=== PATIENT | male | born 1945 | race Caucasian/White ===

== ENCOUNTER 2018-06-02 11:54 | Emergency (ER) | payer MEDICARE, BC ==
--- NOTE | 2018-06-02 12:11 | ER Document Report ---
ED Medical Screen (RME) - General Chief Complaint: Abnormal Lab Results Stated Complaint: ABNORMAL LABS Time Seen by Provider: 06/02/18 12:08 Primary Care Provider: MARK CLARK MD [Primary Care Provider] - Follow up as needed Notes: 72 years old female with a history of collagenous colitis, was sent over here by the certified drug counselor because of abnormal renal function. The blood was drawn about a week ago. At that time patient had diarrhea which has subsided now. He is feeling comfortable TRAVEL OUTSIDE OF THE [place] IN LAST 30 DAYS: No - Related Data Allergies/Adverse Reactions: amoxicillin trihydrate [From Augmentin] Allergy (Severe, Verified 06/02/18 11:56) swelling, itching Potassium Clavulanate * [From Augmentin] Allergy (Severe, Verified 06/02/18 11:56) swelling, itching clarithromycin [Clarithromycin] Allergy (Intermediate, Verified 06/02/18 11:56) DECREASED BP metronidazole [Metronidazole] Allergy (Intermediate, Verified 06/02/18 11:56) DECREASED BP Past Medical History - Past Medical History Cardiac Medical History: Reports: Hx Hypertension Denies: Hx Coronary Artery Disease, Hx Heart Attack Pulmonary Medical History: Denies: Hx Asthma, Hx Bronchitis, Hx COPD, Hx Pneumonia Neurological Medical History: Denies: Hx Cerebrovascular Accident, Hx Seizures Musculoskeltal Medical History: Reports Hx Arthritis - Immunizations Hx Diphtheria, Pertussis, Tetanus Vaccination: No Physical Exam - Vital signs Vitals: Temp Pulse Resp BP Pulse Ox 97.7 F 56 L 16 149/59 H 100 06/02/18 12:00 06/02/18 12:00 06/02/18 12:00 06/02/18 12:00 06/02/18 12:00 Course - Vital Signs Vital signs: Temp Pulse Resp BP Pulse Ox 97.7 F 56 L 16 149/59 H 100 06/02/18 12:00 06/02/18 12:00 06/02/18 12:00 06/02/18 12:00 06/02/18 12:00 Doctor's Discharge - Discharge Referrals: MARK CLARK MD [Primary Care Provider] - Follow up as needed
[2018-06-02 12:54] LABS: ABSOLUTE EOSINOPHILS # (AUTO) 0.2 10^3/uL (0.0-0.6); ABSOLUTE LYMPHOCYTES (AUTO) 3.6 10^3/uL (0.5-4.7); ABSOLUTE MONOCYTES (AUTO) 0.9 10^3/uL (0.1-1.4); ABSOLUTE NEUT (AUTO) 9.5 10^3/uL (1.7-8.2); BASOPHILS % (AUTO) 0.3 % (0-2); EOSINOPHILS % (AUTO) 1.7 % (0-6); HEMOGLOBIN 12.6 g/dL (13.5-17.0); LYMPHOCYTES % (AUTO) 25.4 % (13-45); MEAN CORPUSCULAR HEMOGLOBIN 29.2 pg (27.0-33.4); MEAN CORPUSCULAR HGB CONC 34.9 g/dL (32.0-36.0); MEAN CORPUSCULAR VOLUME 84 fl (80-97); MONOCYTES % (AUTO) 6.6 % (3-13); PLATELET COUNT 307 10^3/uL (150-450); RED CELL DISTRIBUTION WIDTH 14.4 % (11.5-14.0); TOTAL CELLS COUNTED % (AUTO) 100 %; WHITE BLOOD COUNT 14.3 10^3/uL (4.0-10.5)
[2018-06-02 13:13] LABS: ALANINE AMINOTRANSFERASE 17 U/L (21-72); ALBUMIN 4.3 g/dL (3.5-5.0); ALKALINE PHOSPHATASE 131 U/L (38-126); ANION GAP 12 (5-19); ASPARTATE AMINO TRANSFERASE 15 U/L (17-59); BILIRUBIN,DIRECT 0.3 mg/dL (0.0-0.4); BILIRUBIN,TOTAL 0.5 mg/dL (0.2-1.3); BLOOD UREA NITROGEN 27 mg/dL (7-20); CARBON DIOXIDE 25 mmol/L (22-30); CHLORIDE 112 mmol/L (98-107); GLUCOSE 95 mg/dL (75-110); POTASSIUM 3.4 mmol/L (3.6-5.0)
[2018-06-02] MEDS ORDERED: NORMAL SALINE 1000 ML 1,000 ML IV ONE (13:33)
[2018-06-02] MEDS ORDERED: POTASSIUM CHLORIDE 10 MEQ CAPSULE.ER PO ONE (13:34)
--- NOTE | 2018-06-02 14:58 | ER Document Report ---
ED General - General Chief Complaint: Abnormal Lab Results Stated Complaint: ABNORMAL LABS Time Seen by Provider: 06/02/18 12:08 Primary Care Provider: CATHRYN MOSLEY MD [ACTIVE STAFF] - Follow up as needed (Follow-up with Dr. Mosley as planned) MARK CLARK MD [NO LOCAL MD] - Follow up as needed Mode of Arrival: Ambulatory Information source: Patient Notes: This is a 72-year-old man with a history of colitis, anemia, [place]'s esophagus who presents to the emergency room after a call from the physician's office. Patient was told to come in because of abnormal labs last week. Patient does have a history of colitis and had significant diarrhea a week ago during which the lab tests were sent. He states he got a call last night saying that his kidney function tests were abnormal and he should come to the ER. Patient states his symptoms have actually improved over the last week and he is eating and drinking without any difficulties. He also denies any diarrhea. I did discuss the case with Dr. Mosley who states that his creatinine on the fifth of this month was 6. TRAVEL OUTSIDE OF THE [place] IN LAST 30 DAYS: No - HPI Onset: Last week Onset/Duration: Gradual Quality of pain: No pain Severity: None Pain Level: Denies Associated symptoms: denies: Chest pain, Fever, Shortness of breath Exacerbated by: Denies Relieved by: Denies Similar symptoms previously: Yes Recently seen / treated by doctor: Yes - Related Data Allergies/Adverse Reactions: amoxicillin trihydrate [From Augmentin] Allergy (Severe, Verified 06/02/18 11:56) swelling, itching Potassium Clavulanate * [From Augmentin] Allergy (Severe, Verified 06/02/18 11:56) swelling, itching clarithromycin [Clarithromycin] Allergy (Intermediate, Verified 06/02/18 11:56) DECREASED BP metronidazole [Metronidazole] Allergy (Intermediate, Verified 06/02/18 11:56) DECREASED BP Past Medical History - General Information source: Patient - Social History Smoking Status: Current Every Day Smoker Cigarette use (# per day): Yes - 1 pack/day Chew tobacco use (# tins/day): No Frequency of alcohol use: None Drug Abuse: None Lives with: Spouse/Significant other Family History: None Patient has suicidal ideation: No Patient has homicidal ideation: No - Past Medical History Cardiac Medical History: Reports: Hx Hypertension Denies: Hx Coronary Artery Disease, Hx Heart Attack Pulmonary Medical History: Denies: Hx Asthma, Hx Bronchitis, Hx COPD, Hx Pneumonia Neurological Medical History: Denies: Hx Cerebrovascular Accident, Hx Seizures Renal/ Medical History: Denies: Hx Peritoneal Dialysis Musculoskeletal Medical History: Reports Hx Arthritis Surgical Hx: Negative - Immunizations Hx Diphtheria, Pertussis, Tetanus Vaccination: No Review of Systems - Review of Systems Constitutional: See HPI EENT: No symptoms reported Cardiovascular: denies: Chest pain, Palpitations, Heart racing Respiratory: denies: Cough, Short of breath, Wheezing Gastrointestinal: Other - Patient did have history of "severe diarrhea" 2 weeks ago. Currently he denies any diarrhea or abdominal pain.. denies: Abdominal pain, Nausea, Vomiting Genitourinary: denies: Dysuria, Flank pain, Hematuria Male Genitourinary: No symptoms reported Musculoskeletal: No symptoms reported Skin: No symptoms reported Hematologic/Lymphatic: No symptoms reported Neurological/Psychological: No symptoms reported Physical Exam - Vital signs Vitals: Temp Pulse Resp BP Pulse Ox 97.7 F 56 L 16 149/59 H 100 06/02/18 12:00 06/02/18 12:00 06/02/18 12:00 06/02/18 12:00 06/02/18 12:00 Notes: Physical exam: GENERAL: Patient is alert and oriented x3, no acute distress HEAD: Atraumatic, normocephalic. EYES: Pupils equal round and reactive to light, extraocular movements intact, sclera anicteric, conjunctiva are normal. ENT: TMs normal, nares patent, oropharynx clear without exudates. Dry mucous membranes. NECK: Normal range of motion, supple without obvious mass or JVD. LUNGS: Breath sounds clear to auscultation bilaterally and equal. No wheezes rales or rhonchi. HEART: Regular rate and rhythm without murmurs, rubs or gallops. ABDOMEN: Soft, normoactive bowel sounds. No tenderness to palpation. No guarding, no rebound. No masses appreciated. EXTREMITIES: Normal range of motion, no pitting or edema. No clubbing or cyanosis. NEUROLOGICAL: Cranial nerves II through XII grossly intact. Normal speech, moving all extremities. PSYCH: Normal mood, normal affect. SKIN: Warm, Dry, normal turgor, no rashes or lesions noted. Course - Re-evaluation Re-evalutation: 06/02/18 15:02 Note: Patient may have mild dehydration on exam, but his symptoms of colitis have resolved for the past week. He is tolerating p.o. without difficulty and is drinking water in the ER. His creatinine was 6 a week ago showing the severity of his colitis. Given that he is essentially asymptomatic now, tolerating p.o. and creatinine has normalized, we will DC home. I discussed the case with Dr. Mosley who will follow up with the patient in the office. Note: I did discuss with him his blood pressure being mildly elevated. He is on blood pressure medicine and will follow up with his primary care doctor. 06/02/18 18:47 - Vital Signs Vital signs: Temp Pulse Resp BP Pulse Ox 98.1 F 56 L 18 157/60 H 98 06/02/18 15:17 06/02/18 15:17 06/02/18 15:17 06/02/18 15:17 06/02/18 15:17 - Laboratory Result Diagrams: 06/02/18 12:15 06/02/18 12:15 Laboratory results interpreted by me: 06/02/18 06/02/18 12:15 12:15 WBC 14.3 H RBC 4.30 L Hgb 12.6 L Hct 36.0 L RDW 14.4 H Absolute Neutrophils 9.5 H Sodium 149.0 H Potassium 3.4 L Chloride 112 H BUN 27 H Est GFR (Non-Af Amer) 57 L AST 15 L ALT 17 L Alkaline Phosphatase 131 H Discharge - Discharge Clinical Impression: Mild dehydration Condition: Stable Disposition: HOME, SELF-CARE Additional Instructions: As we discussed, your kidney function tests have normalized. I would continue to drink plenty of fluids and continue your medicines. I have spoken to Dr. Mosley and your kidney function test had markedly worsened with your colitis symptoms. So in the future, I would rather you come into the ER for evaluation if your colitis seems bad so that we can check your electrolytes and kidney function. Follow-up with Dr. Mosley as planned. He is aware of today's test results. Return to the emergency room for any abdominal pain, worsening diarrhea, weakness or any concerns or getting worse. Referrals: MARK CLARK MD [NO LOCAL MD] - Follow up as needed CATHRYN MOSLEY MD [ACTIVE STAFF] - Follow up as needed (Follow-up with Dr. Mosley as planned)
[2018-06-02 15:18] VITALS: BP 157/60
== END 2018-06-02 15:20 | disposition home or self-care (01) ==
LOC: ER 11:54
DX: E86.0 Dehydration (principal); I10 Essential (primary) hypertension; Z79.899 Other long term (current) drug therapy; F17.210 Nicotine dependence, cigarettes, uncomplicated; Z88.0 Allergy status to penicillin; Z88.1 Allergy status to other antibiotic agents
CPT/HCPCS: 99284; 36415; 85025; 80053; A9270

== ENCOUNTER 2018-08-06 06:32 | Day surgery (SDC) | payer MEDICARE, BC ==
[~2018-08-06 06:32] MED LIST: KETOROLAC TROMETHAMINE 0.45% 4 DROP/0.4 ML DROPERETTE OD PRN
[2018-08-06] MEDS: CYCLOPENTOLATE 0.2%/PHENYLEPHRINE 1% OPH SOLN 2 ML OD PRN ×3 (06:54→07:15)
[2018-08-06] MEDS: TROPICAMIDE 1% OPH SOLN 3 ML OD PRN ×3 (06:54→07:15)
[2018-08-06] MEDS: BESIFLOXACIN HCL 0.6% OPH SUSP 5 ML BOTTLE OD PRN ×4 (06:54→07:50)
[2018-08-06] MEDS: TETRACAINE HCL 0.5% OPH SOLN 4 ML OD PRN ×4 (06:55→07:32)
[2018-08-06] MEDS ORDERED: LIDOCAINE 1% INJ-PF (10 MG/ML) 30 ML SDV ONE (07:11)
[2018-08-06] MEDS ORDERED: DEXTROSE 50%-WATER 25 GM/50 ML DISP.SYRIN IV ONE (07:14)
[2018-08-06] MEDS ORDERED: MIDAZOLAM 2 MG/2 ML INJ ONE (07:22)
[2018-08-06] MEDS: CHONDR SU A NA/HYALUR INTRAOC KIT (SURGICARE) ONE ×2 (07:41)
[2018-08-06] MEDS: LIDOCAINE 1%/PHENYLEPHRINE 1.5% 1 ML VIAL ONE ×2 (07:41)
[2018-08-06] MEDS: EPINEPHRINE INJ/PF 1 MG/1 ML AMPULE ONE ×2 (07:41)
[2018-08-06] MEDS: DORZOLAMIDE HCL 2%/TIMOLOL MALEAT 0.5% OPH SOLN 10 ML OD PRN ×2 (07:50)
--- NOTE | 2018-08-07 09:44 | [facility] OPERATIVE REPORT E ---
[facility] Operative Report NAME: OMAYRA ANGEL AGE: 72Y DATE OF SURGERY: ROOM: PREOPERATIVE DIAGNOSIS: CATARACT, RIGHT EYE. POSTOPERATIVE DIAGNOSIS: CATARACT, RIGHT EYE. OPERATION: Cataract extraction with insertion of an IOL of the right eye. SURGEON: MCKINLEY OSUNA M.D. ANESTHESIA: Topical. PROCEDURE: After obtaining appropriate consent, the patient's right eye was prepped and draped in sterile fashion as well as the surgeon in a sterile manner and cataract surgery was started. First a paracentesis blade was used to make a side-port incision. Viscoelastic was used to inflate the anterior chamber. Next a 2.4 mm incision was made with a 2.4 mm blade, clear corneal temporally. A continuous capsulorrhexis was made using a cystotome and Utrata forceps. Following this hydrodissection was carried out to make the lens fully loose and mobile and it was rotated 90 degrees. Following this, a qsfoeb-lkz-kesmgga technique was used to phacoemulsify the lens with a CDE of 4.94. The remaining cortex was removed with irrigation/aspiration. Provisc was instilled into the capsular bag to inflate the bag. A SN60WF, 20.0 diopter lens was placed. The remaining viscoelastic material was removed with irrigation/aspiration. Following this, the incision was found to be watertight. Besivance was instilled into the eye and a protective shield was placed over the eye. The patient returned to the postoperative recovery in stable condition. DICTATING PHYSICIAN: MCKINLEY OSUNA M.D. [id number] PHY#: [id number] ID: [id number] JOB#: [id number] ACCT: [id number] cc:MCKINLEY OSUNA M.D. >
--- NOTE | 2018-08-07 10:40 | [facility] DISCHARGE SUMMARY E ---
[facility] Discharge Summary NAME: OMAYRA ANGEL AGE: 72Y ADMITTED: 08/06/2018 DISCHARGED: HOSPITAL COURSE: This is a 72-year-old patient who underwent cataract extraction of the right eye. DIAGNOSIS: CATARACT, RIGHT EYE. He underwent surgery because he was having difficulty driving at night secondary to glare. DISCHARGE INSTRUCTIONS: He should be on a regular diet. No bending at the waist, no heavy lifting. DICTATING PHYSICIAN: MCKINLEY OSUNA M.D. [id number] PHY#: [id number] ID: [id number] JOB#: [id number] ACCT: [id number] cc:MCKINLEY OSUNA M.D. >
== END 2018-08-06 08:35 | disposition home or self-care (01) ==
LOC: SC 06:32
PROVIDERS: ATTEND Internal Medicine
DX: H25.813 Combined forms of age-related cataract, bilateral (principal); H35.3132 Nonexudative age-related macular degeneration, bilateral, intermediate dry stage; E11.9 Type 2 diabetes mellitus without complications; I10 Essential (primary) hypertension; E78.00 Pure hypercholesterolemia, unspecified; K21.9 Gastro-esophageal reflux disease without esophagitis; D64.9 Anemia, unspecified; Z87.891 Personal history of nicotine dependence; Z79.899 Other long term (current) drug therapy; Z79.84 Long term (current) use of oral hypoglycemic drugs
CPT/HCPCS: 66984; 82962; V2632; J2250; J3490 ×3; A9270; J0171; J2370; 142

== ENCOUNTER 2018-09-03 07:35 | Day surgery (SDC) | payer MEDICARE, BC ==
[~2018-09-03 07:35] MED LIST changes: +CHONDR SU A NA/HYALUR INTRAOC KIT (SURGICARE) ONE; +DORZOLAMIDE HCL 2%/TIMOLOL MALEAT 0.5% OPH SOLN 10 ML OS PRN; +EPINEPHRINE INJ/PF 1 MG/1 ML AMPULE ONE; -KETOROLAC TROMETHAMINE 0.45% 4 DROP/0.4 ML DROPERETTE OD PRN; +KETOROLAC TROMETHAMINE 0.45% 4 DROP/0.4 ML DROPERETTE OS PRN; +LIDOCAINE 1%/PHENYLEPHRINE 1.5% 1 ML VIAL ONE
[2018-09-03] MEDS: CYCLOPENTOLATE 0.2%/PHENYLEPHRINE 1% OPH SOLN 2 ML OS PRN ×3 (08:26→08:58)
[2018-09-03] MEDS: TROPICAMIDE 1% OPH SOLN 3 ML OS PRN ×3 (08:26→08:58)
[2018-09-03] MEDS: BESIFLOXACIN HCL 0.6% OPH SUSP 5 ML BOTTLE OS PRN ×2 (08:27→08:45)
[2018-09-03] MEDS: TETRACAINE HCL 0.5% OPH SOLN 4 ML OS PRN ×2 (08:28→09:06)
[2018-09-03] MEDS ORDERED: MIDAZOLAM 2 MG/2 ML INJ ONE (08:51)
--- NOTE | 2018-09-04 09:59 | [facility] OPERATIVE REPORT E ---
[facility] Operative Report NAME: OMAYRA ANGEL AGE: 72Y DATE OF SURGERY: 09/03/2018 ROOM: PREOPERATIVE DIAGNOSIS: CATARACT, LEFT EYE. POSTOPERATIVE DIAGNOSIS: CATARACT, LEFT EYE. OPERATION: Cataract extraction with insertion of an IOL of the left eye. SURGEON: MCKINLEY OSUNA M.D. ANESTHESIA: Topical. PROCEDURE: After obtaining appropriate consent, the patient's left eye was prepped and draped in sterile fashion as well as the surgeon in a sterile manner and cataract surgery was started. First a paracentesis blade was used to make a side-port incision. Viscoelastic was used to inflate the anterior chamber. Next a 2.4 mm incision was made with a 2.4 mm blade, clear corneal temporally. A continuous capsulorrhexis was made using a cystotome and Utrata forceps. Following this hydrodissection was carried out to make the lens fully loose and mobile and it was rotated 90 degrees. Following this, a ejhzjr-niu-wdvazct technique was used to phacoemulsify the lens with a CDE of 7.37. The remaining cortex was removed with irrigation/aspiration. Provisc was instilled into the capsular bag to inflate the bag. A SN60WF, 20.0 diopter lens was placed. The remaining viscoelastic material was removed with irrigation/aspiration. Following this, the incision was found to be watertight. Besivance was instilled into the eye and a protective shield was placed over the eye. The patient returned to the postoperative recovery in stable condition. DICTATING PHYSICIAN: MCKINLEY OSUNA M.D. [id number] PHY#: [id number] ID: [id number] JOB#: [id number] ACCT: [id number] cc:MCKINLEY OSUNA M.D. >
--- NOTE | 2018-09-04 10:00 | [facility] DISCHARGE SUMMARY E ---
[facility] Discharge Summary NAME: OMAYRA ANGEL AGE: 72Y ADMITTED: 09/03/2018 DISCHARGED: 09/03/2018 DIAGNOSIS: CATARACT, LEFT EYE. SUMMARY: This is a 72-year-old male who underwent cataract extraction, left eye. They underwent surgery because they were having difficulty seeing small print. DISCHARGE INSTRUCTIONS: They should be on a regular diet, no bending at their waist, and no heavy lifting. They should use their Vigamox, Ilevro, and Pred Forte at 3 p.m. and 8 p.m. and sleep with a rigid shield. I will see them for a 1-day postoperative tomorrow. DICTATING PHYSICIAN: MCKINLEY OSUNA M.D. [id number] PHY#: [id number] ID: [id number] JOB#: [id number] ACCT: [id number] cc:MCKINLEY OSUNA M.D. >
== END 2018-09-03 10:03 | disposition home or self-care (01) ==
LOC: SC 07:35
PROVIDERS: ATTEND Internal Medicine
DX: H25.812 Combined forms of age-related cataract, left eye (principal); Z96.1 Presence of intraocular lens; I10 Essential (primary) hypertension; K21.9 Gastro-esophageal reflux disease without esophagitis; E11.9 Type 2 diabetes mellitus without complications; D64.9 Anemia, unspecified; F17.210 Nicotine dependence, cigarettes, uncomplicated; Z79.899 Other long term (current) drug therapy; Z79.84 Long term (current) use of oral hypoglycemic drugs
CPT/HCPCS: 66984; 82962; V2632; J2250; J3490 ×2; A9270; J0171; J2370; 142

== ENCOUNTER → 2019-06-10 | Outpatient (CLI) | payer MEDICARE, BC ==
--- NOTE | 2019-06-10 11:14 | RADIOLOGY REPORT (SQ) ---
EXAM DESCRIPTION: U/S ABDOMEN LIMITED W/O DOP COMPLETED DATE/TIME: 06/10/2019 10:27 am REASON FOR STUDY: R94.5 ABNORMAL RESULTS OF LIVER FUNCTION STUDIES R94.5 ABNORMAL RESULTS OF LIVER FUNCTION STUDIES COMPARISON: None. TECHNIQUE: Dynamic and static grayscale images acquired of the abdomen and recorded on PACS. Additio nal selected color Doppler and spectral images recorded. LIMITATIONS: Limited visualization. Poor acoustical window FINDINGS: PANCREAS: No masses. Visualized pancreatic duct normal caliber. LIVER: Normal size Echo texture normal. No focal masses. LIVER VASCULATURE: Normal directional flow of the main portal vein and hepatic veins. GALLBLADDER: No stones. Normal wall thickness. No pericholecystic fluid. ULTRASOUND-DETECTED FELIX'S SIGN: Negative. INTRAHEPATIC DUCTS AND COMMON DUCT: CBD and intrahepatic ducts normal caliber. No filling defects. INFERIOR VENA CAVA: Normal flow. AORTA: No aneurysm. RIGHT KIDNEY: Normal size. 1.9 cm upper pole cyst. No solid or suspicious masses. No hydroneph rosis. No calcifications. PERITONEAL AND RIGHT PLEURAL SPACE: No ascites or effusions. OTHER: No other significant findings. IMPRESSION: NORMAL RIGHT UPPER QUADRANT ULTRASOUND VISUALIZED. TECHNICAL DOCUMENTATION: JOB ID: [id number] 2010 [employer]- All Rights Reserved Reading location - IP/workstation name: [email or web address]
== END ==
LOC: RAD 08:53
PROVIDERS: ATTEND Internal Medicine Gastroenterology
DX: R94.5 Abnormal results of liver function studies (principal)
CPT/HCPCS: 76705

== ENCOUNTER → 2019-11-01 | Outpatient (CLI) | payer MEDICARE, BC ==
[2019-11-01 14:29] LABS: ABSOLUTE BASOPHILS # (AUTO) 0.1 10^3/uL (0.0-0.2); ABSOLUTE EOSINOPHILS # (AUTO) 0.6 10^3/uL (0.0-0.6); ABSOLUTE LYMPHOCYTES (AUTO) 2.4 10^3/uL (0.5-4.7); ABSOLUTE MONOCYTES (AUTO) 0.5 10^3/uL (0.1-1.4); ABSOLUTE NEUT (AUTO) 3.6 10^3/uL (1.7-8.2); EOSINOPHILS % (AUTO) 8.4 % (0-6); HEMATOCRIT 30.8 % (37.9-51.0); HEMOGLOBIN 10.4 g/dL (13.5-17.0); LYMPHOCYTES % (AUTO) 33.6 % (13-45); MEAN CORPUSCULAR HEMOGLOBIN 31.3 pg (27.0-33.4); MEAN CORPUSCULAR HGB CONC 33.9 g/dL (32.0-36.0); MEAN CORPUSCULAR VOLUME 93 fl (80-97); MONOCYTES % (AUTO) 6.9 % (3-13); PLATELET COUNT 354 10^3/uL (150-450); RED BLOOD COUNT 3.34 10^6/uL (4.35-5.55); SEGMENTED NEUTROPHILS % (AUTO) 50.1 % (42-78); TOTAL CELLS COUNTED % (AUTO) 100 %; WHITE BLOOD COUNT 7.1 10^3/uL (4.0-10.5)
[2019-11-01 14:47] LABS: ALBUMIN 4.3 g/dL (3.5-5.0); ALKALINE PHOSPHATASE 130 U/L (38-126); ANION GAP 9 (5-19); ASPARTATE AMINO TRANSFERASE 17 U/L (17-59); BILIRUBIN,TOTAL 0.2 mg/dL (0.2-1.3); BLOOD UREA NITROGEN 25 mg/dL (7-20); C-REACTIVE PROTEIN 5.3 mg/L (<10.0); CALCIUM 9.4 mg/dL (8.4-10.2); CARBON DIOXIDE 18 mmol/L (22-30); CHLORIDE 106 mmol/L (98-107); GLUCOSE 148 mg/dL (75-110); POTASSIUM 5.6 mmol/L (3.6-5.0); TOTAL PROTEIN 7.3 g/dL (6.3-8.2)
== END ==
LOC: OD 13:23
PROVIDERS: ATTEND Physician Assistant
DX: D50.0 Iron deficiency anemia secondary to blood loss (chronic) (principal); R19.7 Diarrhea, unspecified
CPT/HCPCS: 36415; 80048; 80076; 82728; 85025; 86140

== ENCOUNTER 2019-11-05 13:07 | Day surgery (SDC) | payer MEDICARE, BC ==
--- NOTE | 2019-11-02 14:22 | EKG REPORT ---
SEVERITY:- NORMAL ECG - SINUS BRADYCARDIA : Confirmed by: David Terrell MD 02-Nov-2019 14:21:39
[2019-11-05] MEDS ORDERED: PROPOFOL INJ 200 MG/20 ML VIAL IV ONE (13:54)
[2019-11-05] MEDS ORDERED: LIDOCAINE 2% INJ-PF (20 MG/ML) 10 ML AMPUL ONE (13:56)
--- NOTE | 2019-11-05 15:03 | Operative Report ---
Operative Report DATE OF SURGERY: 11/05/19 Operative Report: Pre-op diagnosis: Abnormal capsule endoscopy with bleeding, recurrent anemia Post-op diagnosis: 1. Jejunal angiodysplasia Surgery: Esophagogastroduodenoscopy with enteroscopy and argon plasma coagulation Medications: As per anesthesia Tissue removed: None Procedure: After informed consent obtained from patient, the throat was sprayed with Hurricane and conscious sedation was achieved. The pediatric colonoscope was inserted into the esophagus under direct vision and advanced into the stomach. The duodenum was entered and examined to the second part. The scope was then advanced into the jejunum up to 50 to 60 cm beyond the ligament of Treitz. 4 small angiodysplasias were identified and treated. Endoscope was then slowly pulled out of the patient as the mucosa was examined into details. Patient tolerated procedure well. Findings Esophagus: Normal Z-line at: 40 cm Antrum: Normal Body: Normal Fundus: Normal Duodenum first part: Normal Duodenum second part: Normal Jejunum: 4 small angiodysplasias identified and cauterized with APC. Plan: Follow CBC. Use of aspirin and Plavix remains a risk factor for recurrent bleeding. Hold Plavix for 3 days. OPERATION: .
[2019-11-05 15:19] VITALS: BP 128/46
== END 2019-11-05 15:30 | disposition home or self-care (01) ==
LOC: END 13:07
PROVIDERS: ATTEND Internal Medicine Gastroenterology
DX: K55.21 Angiodysplasia of colon with hemorrhage (principal); D50.0 Iron deficiency anemia secondary to blood loss (chronic); Z03.818 Encounter for observation for suspected exposure to other biological agents ruled out; K92.1 Melena; E78.00 Pure hypercholesterolemia, unspecified; I10 Essential (primary) hypertension; K21.9 Gastro-esophageal reflux disease without esophagitis; D50.9 Iron deficiency anemia, unspecified; E11.9 Type 2 diabetes mellitus without complications; I73.9 Peripheral vascular disease, unspecified; F17.210 Nicotine dependence, cigarettes, uncomplicated; Z79.84 Long term (current) use of oral hypoglycemic drugs; Z79.82 Long term (current) use of aspirin; Z79.899 Other long term (current) drug therapy; Z79.02 Long term (current) use of antithrombotics/antiplatelets
CPT/HCPCS: 43270; 93005; 82962; 93010; 00731; U0003; J2704; J3490; C9803; 731; 87635

== ENCOUNTER → 2020-01-05 | Outpatient (CLI) | payer MEDICARE, BC ==
[2020-01-05 17:19] LABS: HEMATOCRIT 34.5 % (37.9-51.0); HEMOGLOBIN 11.9 g/dL (13.5-17.0); MEAN CORPUSCULAR HGB CONC 34.4 g/dL (32.0-36.0); MEAN CORPUSCULAR VOLUME 87 fl (80-97); PLATELET COUNT 273 10^3/uL (150-450); RED BLOOD COUNT 3.95 10^6/uL (4.35-5.55); RED CELL DISTRIBUTION WIDTH 13.4 % (11.5-14.0); WHITE BLOOD COUNT 8.8 10^3/uL (4.0-10.5)
[2020-01-05 17:39] LABS: ANION GAP 13 (5-19); BLOOD UREA NITROGEN 15 mg/dL (7-20); C-REACTIVE PROTEIN 9.6 mg/L (<10.0); CALCIUM 9.4 mg/dL (8.4-10.2); CARBON DIOXIDE 24 mmol/L (22-30); CHLORIDE 105 mmol/L (98-107); GLUCOSE 79 mg/dL (75-110); POTASSIUM 4.6 mmol/L (3.6-5.0)
[2020-01-06 15:03] LABS: C DIFFICILE GDH NEGATIVE (NEGATIVE)
== END ==
LOC: OD 16:51
PROVIDERS: ATTEND Internal Medicine Gastroenterology
DX: R19.7 Diarrhea, unspecified (principal)
CPT/HCPCS: 36415; 80048; 82705; 85027; 86140; 87324; 87449; 89055